=== PATIENT | male | born 1990 | race Two or more races ===

== ENCOUNTER 2019-08-21 17:22 | Inpatient (IN) | payer MEDICAID, OTHER ==
[~2019-08-21] VITALS: Ht 170.2 cm; Wt 77.1 kg
[~2019-08-21 17:22] MED LIST: OLAN10TA3 PO
[2019-08-21] MEDS ORDERED: OLAN5TAB2 PO (17:58)
[2019-08-21] MEDS ORDERED: LORazepam 2 MG TABLET PO PRN (18:15)
[2019-08-21 18:30] LABS: BASOPHILS % (AUTO) 0.2 % (0.0-2.0); EOSINOPHILS % (AUTO) 0 % (1.0-6.0); HEMATOCRIT 47.1 % (41-53); HEMOGLOBIN 16.6 g/dL (13.5-17.5); LYMPHOCYTES # (AUTO) 1.9 K/uL (1.0-4.8); LYMPHOCYTES % (AUTO) 23.5 % (22.0-44.0); MEAN CORPUSCULAR HEMOGLOBIN 31.7 pg (26.0-34.0); MEAN CORPUSCULAR HGB CONC 35.3 G/dL (31.0-37.0); MEAN CORPUSCULAR VOLUME 90 fL (80-100); MONOCYTES # (AUTO) 0.6 K/uL (0.1-1.0); MONOCYTES % (AUTO) 7.5 % (2.0-9.0); NEUTROPHILS # (AUTO) 5.4 K/uL (1.8-7.7); NEUTROPHILS % (AUTO) 68.8 % (40.0-70.0); PLATELET COUNT (AUTO) 264 K/uL (150-450); RED BLOOD CELL COUNT(AUTO) 5.25 MIL/uL (4.50-5.90); RED CELL DISTRIBUTION WIDTH 12.9 % (11.5-14.5)
[2019-08-21 18:37] LABS: AMPHET/METH SCREEN,URINE NEGATIVE (NEGATIVE); BARBITURATE SCREEN, URINE NEGATIVE (NEGATIVE); BENZODIAZEPINES SCREEN,URINE NEGATIVE (NEGATIVE); CANNABINOID SCREEN,URINE NEGATIVE (NEGATIVE); COCAINE SCREEN,URINE NEGATIVE (NEGATIVE); METHADONE SCREEN, URINE NEGATIVE (NEGATIVE); OPIATE SCREEN,URINE NEGATIVE (NEGATIVE)
[2019-08-21 18:39] LABS: PHENCYCLIDINE SCREEN,URINE NEGATIVE (NEGATIVE)
[2019-08-21 19:00] LABS: ANION GAP 13 mmol/L (8-16); CALCIUM, TOTAL 9.6 mg/dL (8.8-10.5); CARBON DIOXIDE 26 mmol/L (22-29); CHLORIDE 102 mmol/L (98-107); CREATININE 0.71 mg/dL (0.60-1.30); GLOMERULAR FILTR. RATE CALC > 60 mL/min (>60); GLUCOSE,RANDOM 136 mg/dL (70-110); SODIUM SERUM 141 mmol/L (136-145); UREA NITROGEN, BLOOD 9 mg/dL (7-18)
[2019-08-21 19:05] LABS: ALANINE AMINOTRANSFERASE 111 U/L (12-78); ALBUMIN 4.8 g/dL (3.4-5.0); ALKALINE PHOSPHATASE 123 U/L (46-116); ASPARTATE AMINOTRANSFERASE 37 U/L (15-37); BILIRUBIN,TOTAL 0.9 mg/dL (0.1-1.0); TOTAL PROTEIN, SERUM 8.3 g/dL (6.4-8.2)
[2019-08-21 20:54] LABS: APPEARANCE,URINE CLEAR (CLEAR)
[2019-08-21 20:55] LABS: BILIRUBIN,URINE NEGATIVE (NEGATIVE); GLUCOSE, URINE (UA) 100 mg/dL (NEGATIVE); KETONES,URINE 15 mg/dL (NEGATIVE); LEUKOCYTE ESTERASE ,URINE NEGATIVE (NEGATIVE); NITRATE,URINE NEGATIVE (NEGATIVE); OCCULT BLOOD,URINE NEGATIVE (NEGATIVE); PH,URINE 6.5 (5.0-8.0); PROTEIN,URINE NEGATIVE (NEGATIVE); UROBILINOGEN,URINE 0.2 mg/dL (<=1.0)
[2019-08-21 21:03] LABS: BACTERIA,URINE None Seen /HPF (None Seen); RBC,URINE None Seen /HPF (0-2); SQUAMOUS EPITHELIAL CELL,UR Rare /LPF (None Seen); WBC,URINE 0-2 /HPF (0-5)
[2019-08-21 21:15] VITALS: BP 132/82
[2019-08-21] MEDS ORDERED: INFLUENZA VIRUS VACCINE QVS 2019-20 (3YR+)/PF 60 MCG/0.5 ML SYRINGE IM ONE (22:00)
[2019-08-22 00:55] VITALS: BP 121/76
[2019-08-22] MEDS: ZOLPIDEM TARTRATE 10 MG TABLET PO PRN ×2 (01:04→23:40)
[2019-08-22 08:18] VITALS: BP 137/80
[2019-08-22 08:43] LABS: CHOL/HDL RATIO 3.2 (4.2-7.3); FREE T4 (FREE THYROXINE) 1.43 ng/dL (0.76-1.46); THYROID STIMULATING HORMONE 0.77 uIU/mL (0.36-3.74)
[2019-08-22] MEDS ORDERED: POTASSIUM CHLORIDE 20 MEQ ER TABLET PO ONE (09:00)
[2019-08-22] MEDS ORDERED: GLUCAGON,HUMAN RECOMBINANT 1 MG VIAL IM PRN (09:00)
[2019-08-22 16:23] VITALS: BP 134/84
[2019-08-22] MEDS: MetFORMIN HCL 500 MG TABLET PO SCH (17:00)
[2019-08-23 01:23] VITALS: BP 130/82
[2019-08-23 01:58] VITALS: BP 131/81
[2019-08-23] MEDS: HALOPERIDOL 5 MG TABLET PO PRN ×2 (02:01→20:35)
[2019-08-23] MEDS: MetFORMIN HCL 500 MG TABLET PO SCH ×2 (06:54→16:52)
[2019-08-23 07:42] LABS: HEMOGLOBIN A1C 8.5 % (4.5-6.2)
[2019-08-23 08:10] LABS: ALANINE AMINOTRANSFERASE 65 U/L (12-78); ALBUMIN 3.8 g/dL (3.4-5.0); ALKALINE PHOSPHATASE 98 U/L (46-116); ANION GAP 11 mmol/L (8-16); ASPARTATE AMINOTRANSFERASE 27 U/L (15-37); BILIRUBIN,TOTAL 0.4 mg/dL (0.1-1.0); CALCIUM, TOTAL 8.9 mg/dL (8.8-10.5); CARBON DIOXIDE 26 mmol/L (22-29); CHLORIDE 105 mmol/L (98-107); CREATININE 0.67 mg/dL (0.60-1.30); GLOMERULAR FILTR. RATE CALC > 60 mL/min (>60); GLUCOSE,RANDOM 136 mg/dL (70-110); POTASSIUM 3.7 mmol/L (3.5-5.1); SODIUM SERUM 142 mmol/L (136-145); TOTAL PROTEIN, SERUM 6.4 g/dL (6.4-8.2)
[2019-08-23 08:22] LABS: UREA NITROGEN, BLOOD 12 mg/dL (7-18)
[2019-08-23 08:33] VITALS: BP 110/62
[2019-08-23] MEDS ORDERED: ARIPiprazole 10 MG TABLET PO SCH (09:00)
[2019-08-23 16:09] VITALS: BP 133/87
[2019-08-23 17:10] LABS: GLUCOMETER DEV NAME(LOC) BV2S.; GLUCOSE,POINT OF CARE 251 MG/DL (70-110)
[2019-08-23 21:03] LABS: GLUCOMETER DEV NAME(LOC) BV2S.; GLUCOSE,POINT OF CARE 121 MG/DL (70-110)
[2019-08-24 03:39] VITALS: BP 134/76
[2019-08-24 06:38] LABS: GLUCOMETER DEV NAME(LOC) BV2S.; GLUCOSE,POINT OF CARE 165 MG/DL (70-110)
[2019-08-24] MEDS: INSULIN LISPRO 100 UNITS/ML SQ PRN (07:15)
[2019-08-24] MEDS: MetFORMIN HCL 500 MG TABLET PO SCH ×2 (07:19→17:31)
[2019-08-24 08:51] VITALS: BP 128/72
[2019-08-24] MEDS ORDERED: ARIPiprazole 15 MG TABLET PO SCH (09:00)
[2019-08-24 11:07] LABS: GLUCOMETER DEV NAME(LOC) BV2S.; GLUCOSE,POINT OF CARE 134 MG/DL (70-110)
[2019-08-24 16:11] VITALS: BP 120/80
[2019-08-24 17:19] LABS: GLUCOMETER DEV NAME(LOC) BV2S.; GLUCOSE,POINT OF CARE 136 MG/DL (70-110)
[2019-08-24] MEDS: HALOPERIDOL 5 MG TABLET PO PRN (17:33)
[2019-08-24 20:34] LABS: GLUCOMETER DEV NAME(LOC) BV2S.; GLUCOSE,POINT OF CARE 157 MG/DL (70-110)
[2019-08-25 06:15] VITALS: BP 127/78
[2019-08-25 07:00] LABS: GLUCOMETER DEV NAME(LOC) BV2X.; GLUCOSE,POINT OF CARE 129 MG/DL (70-110)
[2019-08-25] MEDS: MetFORMIN HCL 500 MG TABLET PO SCH ×2 (07:09→16:44)
[2019-08-25 08:24] VITALS: BP 124/64
[2019-08-25] MEDS ORDERED: ARIPiprazole 10 MG TABLET PO SCH (09:00)
[2019-08-25 16:22] LABS: GLUCOMETER DEV NAME(LOC) BV2S.; GLUCOSE,POINT OF CARE 146 MG/DL (70-110)
[2019-08-25 16:24] VITALS: BP 132/76
[2019-08-25] MEDS: INSULIN LISPRO 100 UNITS/ML SQ PRN (18:51)
[2019-08-26 06:25] LABS: GLUCOMETER DEV NAME(LOC) BV2S.; GLUCOSE,POINT OF CARE 128 MG/DL (70-110)
[2019-08-26 06:29] VITALS: BP 127/84
[2019-08-26] MEDS: MetFORMIN HCL 500 MG TABLET PO SCH ×2 (06:35→16:10)
[2019-08-26 08:30] VITALS: BP 126/72
[2019-08-26] MEDS ORDERED: ARIPiprazole LAUROXIL ER SUSPENSION 882 MG/3.2 ML SYRINGE IM SCH (09:00)
[2019-08-26] MEDS: ARIPiprazole 10 MG TABLET PO SCH (09:19)
[2019-08-26 16:32] VITALS: BP 129/78
[2019-08-26] MEDS: HALOPERIDOL 5 MG TABLET PO PRN (19:18)
[2019-08-27 06:21] VITALS: BP 118/77
[2019-08-27 06:31] LABS: GLUCOMETER DEV NAME(LOC) BV2S.; GLUCOSE,POINT OF CARE 116 MG/DL (70-110)
[2019-08-27] MEDS: MetFORMIN HCL 500 MG TABLET PO SCH ×2 (06:41→16:23)
[2019-08-27 08:34] VITALS: BP 125/79
[2019-08-27] MEDS: ARIPiprazole 10 MG TABLET PO SCH (08:44)
[2019-08-27 11:31] LABS: GLUCOMETER DEV NAME(LOC) BV2S.; GLUCOSE,POINT OF CARE 102 MG/DL (70-110)
[2019-08-27 16:10] VITALS: BP 125/73
[2019-08-27] MEDS: INSULIN LISPRO 100 UNITS/ML SQ PRN (16:33)
[2019-08-28 01:49] VITALS: BP 116/63
[2019-08-28 06:19] LABS: GLUCOMETER DEV NAME(LOC) BV2S.; GLUCOSE,POINT OF CARE 153 MG/DL (70-110)
[2019-08-28] MEDS: MetFORMIN HCL 500 MG TABLET PO SCH ×2 (06:46→16:48)
[2019-08-28] MEDS: INSULIN LISPRO 100 UNITS/ML SQ PRN (06:47)
[2019-08-28] MEDS: ARIPiprazole 10 MG TABLET PO SCH (08:21)
[2019-08-28 08:48] VITALS: BP 111/63
[2019-08-28 11:11] LABS: GLUCOMETER DEV NAME(LOC) BV2S.; GLUCOSE,POINT OF CARE 124 MG/DL (70-110)
[2019-08-28 16:12] VITALS: BP 135/75
[2019-08-28 20:59] LABS: GLUCOMETER DEV NAME(LOC) BV2S.; GLUCOSE,POINT OF CARE 118 MG/DL (70-110)
[2019-08-29 00:15] VITALS: BP 118/68
[2019-08-29 06:28] LABS: GLUCOMETER DEV NAME(LOC) BV2S.; GLUCOSE,POINT OF CARE 170 MG/DL (70-110)
[2019-08-29] MEDS: MetFORMIN HCL 500 MG TABLET PO SCH ×2 (06:42→20:06)
[2019-08-29] MEDS: INSULIN LISPRO 100 UNITS/ML SQ PRN ×2 (06:47→16:52)
[2019-08-29 08:25] VITALS: BP 120/73
[2019-08-29] MEDS: ARIPiprazole 10 MG TABLET PO SCH (09:00)
[2019-08-29 16:03] LABS: GLUCOMETER DEV NAME(LOC) BV2S.; GLUCOSE,POINT OF CARE 182 MG/DL (70-110)
[2019-08-29 16:14] VITALS: BP 119/77
[2019-08-30 01:11] VITALS: BP 105/61
[2019-08-30] MEDS: MetFORMIN HCL 500 MG TABLET PO SCH ×2 (06:09→16:48)
[2019-08-30 06:18] LABS: GLUCOMETER DEV NAME(LOC) BV2S.; GLUCOSE,POINT OF CARE 137 MG/DL (70-110)
[2019-08-30 09:13] VITALS: BP 124/63
[2019-08-30] MEDS: ARIPiprazole 10 MG TABLET PO SCH (09:47)
[2019-08-30 16:33] VITALS: BP 120/70
[2019-08-30 17:14] LABS: GLUCOMETER DEV NAME(LOC) BV2S.; GLUCOSE,POINT OF CARE 95 MG/DL (70-110)
[2019-08-31 01:18] VITALS: BP 112/82
[2019-08-31 06:54] LABS: GLUCOMETER DEV NAME(LOC) BV2S.; GLUCOSE,POINT OF CARE 121 MG/DL (70-110)
[2019-08-31] MEDS: MetFORMIN HCL 500 MG TABLET PO SCH ×2 (07:04→16:10)
[2019-08-31] MEDS: ARIPiprazole 10 MG TABLET PO SCH (08:12)
[2019-08-31 09:06] VITALS: BP 115/74
[2019-08-31 09:10] VITALS: BP 115/74
[2019-08-31 16:27] VITALS: BP 126/83
[2019-08-31 17:07] LABS: GLUCOMETER DEV NAME(LOC) BV2S.; GLUCOSE,POINT OF CARE 98 MG/DL (70-110)
[2019-09-01 06:21] VITALS: BP 121/68
[2019-09-01] MEDS: MetFORMIN HCL 500 MG TABLET PO SCH ×2 (07:16→16:10)
[2019-09-01 07:30] LABS: GLUCOMETER DEV NAME(LOC) BV2S.; GLUCOSE,POINT OF CARE 120 MG/DL (70-110)
[2019-09-01 08:57] VITALS: BP 124/70
[2019-09-01] MEDS: ARIPiprazole 10 MG TABLET PO SCH (09:06)
[2019-09-01 11:30] LABS: GLUCOMETER DEV NAME(LOC) BV2S.; GLUCOSE,POINT OF CARE 95 MG/DL (70-110)
[2019-09-01 16:18] VITALS: BP 141/82
[2019-09-01 17:14] LABS: GLUCOMETER DEV NAME(LOC) BV2S.; GLUCOSE,POINT OF CARE 113 MG/DL (70-110)
[2019-09-02 00:58] VITALS: BP 111/74
[2019-09-02 06:32] LABS: GLUCOMETER DEV NAME(LOC) BV2S.; GLUCOSE,POINT OF CARE 145 MG/DL (70-110)
[2019-09-02] MEDS: MetFORMIN HCL 500 MG TABLET PO SCH ×2 (06:59→17:08)
[2019-09-02] MEDS: INSULIN LISPRO 100 UNITS/ML SQ PRN (07:00)
[2019-09-02 08:49] VITALS: BP 123/68
[2019-09-02] MEDS: ARIPiprazole 10 MG TABLET PO SCH (09:37)
[2019-09-02 16:24] VITALS: BP 127/73
[2019-09-02 16:57] LABS: GLUCOMETER DEV NAME(LOC) BV2S.; GLUCOSE,POINT OF CARE 102 MG/DL (70-110)
[2019-09-02 20:24] LABS: GLUCOMETER DEV NAME(LOC) BV2S.; GLUCOSE,POINT OF CARE 113 MG/DL (70-110)
[2019-09-03 00:41] VITALS: BP 109/63
[2019-09-03] MEDS: MetFORMIN HCL 500 MG TABLET PO SCH ×2 (07:19→16:42)
[2019-09-03 07:36] LABS: GLUCOMETER DEV NAME(LOC) BV2S.; GLUCOSE,POINT OF CARE 125 MG/DL (70-110)
[2019-09-03 08:32] VITALS: BP 138/60
[2019-09-03] MEDS: ARIPiprazole 10 MG TABLET PO SCH (08:36)
[2019-09-03] MEDS ORDERED: ARIP882S IM (15:34)
[2019-09-03] MEDS ORDERED: METF-960 PO (15:34)
[2019-09-03] MEDS ORDERED: ARIP15TA2 PO (15:34)
[2019-09-03 16:35] VITALS: BP 116/75
[2019-09-03 16:56] LABS: GLUCOMETER DEV NAME(LOC) BV2S.; GLUCOSE,POINT OF CARE 144 MG/DL (70-110)
== END 2019-09-03 17:37 | disposition home or self-care (01) | DRG 750 ==
LOC: EMS 17:24 → B2S 18:47
PROVIDERS: ADMIT Psychiatry & Neurology Psychiatry; ATTEND Psychiatry & Neurology Psychiatry
DX: F20.0 Paranoid schizophrenia (principal); R45.850 Homicidal ideations; E87.6 Hypokalemia; E11.9 Type 2 diabetes mellitus without complications; F15.90 Other stimulant use, unspecified, uncomplicated; Z59.0 Homelessness; Z91.14 Patient's other noncompliance with medication regimen
CPT/HCPCS: 83036; 84132; 84439; 84443; 87081; G0480

== ENCOUNTER 2019-09-14 11:59 | Emergency (ER) | payer MEDICAID, OTHER ==
[~2019-09-14] VITALS: Ht 172.7 cm; Wt 84.1 kg
[~2019-09-14 11:59] MED LIST changes: +ARIP15TA2 PO; +ARIP882S IM; +METF-960 PO; -OLAN10TA3 PO
[2019-09-14] MEDS ORDERED: OLAN10TA3 PO (12:59)
[2019-09-14 13:20] LABS: GLUCOSE,POINT OF CARE 180 MG/DL (70-110)
[2019-09-14] MEDS ORDERED: LORazepam 1 MG TABLET PO ONE (13:30)
[2019-09-14] MEDS ORDERED: HALOPERIDOL 5 MG TABLET PO ONE (13:30)
[2019-09-14 13:49] LABS: AMPHET/METH SCREEN,URINE NEGATIVE (NEGATIVE); BARBITURATE SCREEN, URINE NEGATIVE (NEGATIVE); BENZODIAZEPINES SCREEN,URINE NEGATIVE (NEGATIVE); CANNABINOID SCREEN,URINE NEGATIVE (NEGATIVE); COCAINE SCREEN,URINE NEGATIVE (NEGATIVE); METHADONE SCREEN, URINE NEGATIVE (NEGATIVE); OPIATE SCREEN,URINE NEGATIVE (NEGATIVE); PHENCYCLIDINE SCREEN,URINE NEGATIVE (NEGATIVE)
[2019-09-14 14:07] LABS: BASOPHILS % (AUTO) 0.5 % (0.0-2.0); EOSINOPHILS % (AUTO) 0.1 % (1.0-6.0); HEMATOCRIT 43.5 % (41-53); HEMOGLOBIN 15.1 g/dL (13.5-17.5); LYMPHOCYTES # (AUTO) 1.7 K/uL (1.0-4.8); LYMPHOCYTES % (AUTO) 27.8 % (22.0-44.0); MEAN CORPUSCULAR HEMOGLOBIN 31.6 pg (26.0-34.0); MEAN CORPUSCULAR HGB CONC 34.8 G/dL (31.0-37.0); MEAN CORPUSCULAR VOLUME 91 fL (80-100); MONOCYTES # (AUTO) 0.4 K/uL (0.1-1.0); MONOCYTES % (AUTO) 6.1 % (2.0-9.0); NEUTROPHILS # (AUTO) 3.9 K/uL (1.8-7.7); NEUTROPHILS % (AUTO) 65.5 % (40.0-70.0); PLATELET COUNT (AUTO) 259 K/uL (150-450); RED BLOOD CELL COUNT(AUTO) 4.79 MIL/uL (4.50-5.90); RED CELL DISTRIBUTION WIDTH 13.6 % (11.5-14.5)
[2019-09-14 14:26] LABS: CARBON DIOXIDE 27 mmol/L (22-29); CHLORIDE 103 mmol/L (98-107); POTASSIUM 3.6 mmol/L (3.5-5.1); SODIUM SERUM 141 mmol/L (136-145)
[2019-09-14 14:27] LABS: ANION GAP 11 mmol/L (8-16); CALCIUM, TOTAL 8.5 mg/dL (8.8-10.5); CREATININE 0.67 mg/dL (0.60-1.30); GLOMERULAR FILTR. RATE CALC > 60 mL/min (>60); GLUCOSE,RANDOM 198 mg/dL (70-110); UREA NITROGEN, BLOOD 16 mg/dL (7-18)
[2019-09-14 14:41] LABS: ALANINE AMINOTRANSFERASE 62 U/L (12-78); ALBUMIN 3.8 g/dL (3.4-5.0); ALKALINE PHOSPHATASE 99 U/L (46-116); ASPARTATE AMINOTRANSFERASE 26 U/L (15-37); BILIRUBIN,TOTAL 0.2 mg/dL (0.1-1.0); TOTAL PROTEIN, SERUM 7.1 g/dL (6.4-8.2)
[2019-09-14 14:59] VITALS: BP 119/77
== END 2019-09-14 15:02 | disposition home or self-care (01) ==
LOC: EMS 12:00
DX: F20.9 Schizophrenia, unspecified (principal); Z79.84 Long term (current) use of oral hypoglycemic drugs; Z79.899 Other long term (current) drug therapy
CPT/HCPCS: 36415; 80053; 80307; 82962; 85025; 99284; G0480

== ENCOUNTER 2019-11-03 17:33 | Emergency (ER) | payer OTHER ==
[~2019-11-03] VITALS: Ht 172.7 cm; Wt 70.5 kg
[~2019-11-03 17:33] MED LIST changes: -ARIP15TA2 PO; +OLAN10TA3 PO
[2019-11-03] MEDS ORDERED: HALO5TAB2 PO (17:59)
[2019-11-03] MEDS ORDERED: TRAZ-257 PO (17:59)
[2019-11-03] MEDS ORDERED: DIPH25 PO (17:59)
[2019-11-03] MEDS ORDERED: TOPI25 PO (17:59)
[2019-11-03] MEDS ORDERED: QUET300T2 PO (17:59)
[2019-11-03 18:09] LABS: GLUCOSE,POINT OF CARE 155 MG/DL (70-110)
[2019-11-03 18:47] LABS: BASOPHILS % (AUTO) 0.2 % (0.0-2.0); EOSINOPHILS % (AUTO) 0 % (1.0-6.0); HEMATOCRIT 49.3 % (41-53); HEMOGLOBIN 16.8 g/dL (13.5-17.5); LYMPHOCYTES # (AUTO) 2.3 K/uL (1.0-4.8); LYMPHOCYTES % (AUTO) 26.1 % (22.0-44.0); MEAN CORPUSCULAR HEMOGLOBIN 30.9 pg (26.0-34.0); MEAN CORPUSCULAR VOLUME 91 fL (80-100); MONOCYTES # (AUTO) 0.6 K/uL (0.1-1.0); MONOCYTES % (AUTO) 7.1 % (2.0-9.0); NEUTROPHILS # (AUTO) 5.8 K/uL (1.8-7.7); NEUTROPHILS % (AUTO) 66.6 % (40.0-70.0); PLATELET COUNT (AUTO) 282 K/uL (150-450); RED BLOOD CELL COUNT(AUTO) 5.42 MIL/uL (4.50-5.90); RED CELL DISTRIBUTION WIDTH 13.5 % (11.5-14.5)
[2019-11-03 18:57] LABS: APPEARANCE,URINE CLEAR (CLEAR); BILIRUBIN,URINE NEGATIVE (NEGATIVE); GLUCOSE, URINE (UA) 100 mg/dL (NEGATIVE); KETONES,URINE NEGATIVE (NEGATIVE); LEUKOCYTE ESTERASE ,URINE NEGATIVE (NEGATIVE); NITRATE,URINE NEGATIVE (NEGATIVE); OCCULT BLOOD,URINE NEGATIVE (NEGATIVE); PROTEIN,URINE NEGATIVE (NEGATIVE)
[2019-11-03 19:02] LABS: ANION GAP 13 mmol/L (8-16); CALCIUM, TOTAL 9.7 mg/dL (8.8-10.5); CARBON DIOXIDE 23 mmol/L (22-29); CHLORIDE 104 mmol/L (98-107); CREATININE 0.92 mg/dL (0.60-1.30); GLOMERULAR FILTR. RATE CALC > 60 mL/min (>60); GLUCOSE,RANDOM 132 mg/dL (70-110); POTASSIUM 3.5 mmol/L (3.5-5.1); SODIUM SERUM 140 mmol/L (136-145); UREA NITROGEN, BLOOD 13 mg/dL (7-18)
[2019-11-03 19:02] LABS: AMPHET/METH SCREEN,URINE NEGATIVE (NEGATIVE); BARBITURATE SCREEN, URINE NEGATIVE (NEGATIVE); BENZODIAZEPINES SCREEN,URINE NEGATIVE (NEGATIVE); CANNABINOID SCREEN,URINE NEGATIVE (NEGATIVE); COCAINE SCREEN,URINE NEGATIVE (NEGATIVE); METHADONE SCREEN, URINE NEGATIVE (NEGATIVE); OPIATE SCREEN,URINE NEGATIVE (NEGATIVE)
[2019-11-03 19:03] LABS: PHENCYCLIDINE SCREEN,URINE NEGATIVE (NEGATIVE)
[2019-11-03 19:11] LABS: ALANINE AMINOTRANSFERASE 53 U/L (12-78); ALBUMIN 4.9 g/dL (3.4-5.0); ALKALINE PHOSPHATASE 102 U/L (46-116); ASPARTATE AMINOTRANSFERASE 18 U/L (15-37); BILIRUBIN,TOTAL 0.5 mg/dL (0.1-1.0); TOTAL PROTEIN, SERUM 8.6 g/dL (6.4-8.2)
[2019-11-03 19:14] LABS: BACTERIA,URINE None Seen /HPF (None Seen); RBC,URINE None Seen /HPF (0-2); SQUAMOUS EPITHELIAL CELL,UR Rare /LPF (None Seen); WBC,URINE None Seen /HPF (0-5)
[2019-11-03] MEDS ORDERED: HALOPERIDOL 5 MG TABLET PO ONE (21:30)
[2019-11-03] MEDS ORDERED: LORazepam 2 MG TABLET PO ONE (21:30)
[2019-11-04 05:30] VITALS: BP 135/73
== END 2019-11-04 06:19 | disposition home or self-care (01) ==
LOC: EMS 17:33
DX: F20.9 Schizophrenia, unspecified (principal); F17.210 Nicotine dependence, cigarettes, uncomplicated; F15.90 Other stimulant use, unspecified, uncomplicated; Z79.84 Long term (current) use of oral hypoglycemic drugs
CPT/HCPCS: 36415; 80053; 80307; 81001; 82962; 85025; 99284; G0480